=== PATIENT | male | born 1960 | race Caucasian/White ===

== ENCOUNTER 2025-08-01 08:42 | Outpatient (CLI) | payer BC, MEDICARE ==
[2025-08-01 09:34] LABS: #Basophils 0.03 10x3/uL (0.0-0.2); #Eosinophils 0.41 10x3/uL (0.0-0.5); #Monocytes 0.96 10x3/uL (0.0-1.1); #Neutrophils 3.78 10x3/uL (1.5-8.4); %Basophils 0.4 % (0.0-2.0); %Eosinophils 5.9 % (0.0-6.0); %Lymphocytes 25.4 % (18.0-47.0); %Monocytes 13.8 % (0.0-10.0); %Neutrophils 54.2 % (40.0-75.0); Hematocrit 49.9 % (38.8-50.0); Hemoglobin 16.2 g/dL (13.5-17.5); Mean Corpuscular Hemoglobin 27.0 pg (27.0-33.0); Mean Corpuscular Volume 83.0 fL (81.2-95.1); Platelet Count 225 10x3/uL (150-450); Red Blood Cell (RBC) Count 6.01 10x6/uL (4.32-5.72); White Blood Cell (WBC) Count 6.97 10x3/uL (3.5-10.5)
[2025-08-01 09:53] LABS: Anion Gap 15 mmol/L (10-20); BUN (Urea Nitrogen) 13 mg/dL (8.4-25.7); Calc. Creatinine Clearance 0 mL/min (70-130); Calcium 9.3 mg/dL (7.8-10.44); Carbon Dioxide 22 mmol/L (23-31); Chloride 108 mmol/L (98-107); Glucose 96 mg/dL (80-115); Potassium 4.5 mmol/L (3.5-5.1); Sodium 140 mmol/L (136-145)
== END 2025-08-01 08:43 | disposition home or self-care (01) ==
LOC: CSHLAB 08:42
PROVIDERS: ATTEND Specialist
DX: Z01.818 Encounter for other preprocedural examination (principal); K40.90 Unilateral inguinal hernia, without obstruction or gangrene, not specified as recurrent; K42.9 Umbilical hernia without obstruction or gangrene; R94.31 Abnormal electrocardiogram [ECG] [EKG]
CPT/HCPCS: 71046; 80048; 85025; 93005; 93010

== ENCOUNTER 2025-08-08 08:40 | Day surgery (SDC) | payer BC, MEDICARE ==
[2025-08-01 08:59] VITALS: BMI 27.6
[2025-08-08] MEDS ORDERED: Ketorolac Tromethamine 30 MG (1 mL) VIAL ONE (09:46)
[2025-08-08] MEDS ORDERED: Acetaminophen 500 MG TAB ONE (09:47)
[2025-08-08] MEDS ORDERED: PROPOFOL 20 ML ONE (10:58)
[2025-08-08] MEDS ORDERED: Rocuronium Bromide 10 MG/ML (10ML VIAL) ONE (10:59)
[2025-08-08] MEDS ORDERED: Lidocaine 1% PF 5 ML VIAL ONE (10:59)
[2025-08-08] MEDS ORDERED: Bupivacaine/Epinephrine 0.25% 30 ML VIAL ONE (11:05)
[2025-08-08] MEDS ORDERED: CEFAZOLIN 2 GM VIAL ONE (11:24)
[2025-08-08] MEDS ORDERED: Glycopyrrolate 0.2 MG/ML 5 ML SYRINGE ONE (12:01)
[2025-08-08] MEDS ORDERED: Ondansetron PF 4 MG/2 ML Vial ONE (13:08)
[2025-08-08] MEDS ORDERED: SUGAMMADEX SODIUM 200 MG/2 ML VIAL ONE (13:11)
[2025-08-08] MEDS ORDERED: HYDROcodone/Acetaminophen 10/325 mg Tablet ONE (14:32)
[2025-08-08] MEDS ORDERED: HYDROcodone/Acetaminophen 5/325 mg Tablet ONE (14:33)
== END 2025-08-08 14:45 | disposition home or self-care (01) ==
LOC: CSHSDC 08:40
PROVIDERS: ATTEND Specialist
PROC: 0WQF0ZZ Repair Abdominal Wall, Open Approach (ICD-10-PCS; principal; 2025-08-08)
PROC: 0YQ54ZZ Repair Right Inguinal Region, Percutaneous Endoscopic Approach (ICD-10-PCS; principal; 2025-08-08)
DX: K40.90 Unilateral inguinal hernia, without obstruction or gangrene, not specified as recurrent (principal); K42.9 Umbilical hernia without obstruction or gangrene; D17.22 Benign lipomatous neoplasm of skin and subcutaneous tissue of left arm
CPT/HCPCS: A6258; C1781; J1100; J1885; J2250; J2704; S2900

== ENCOUNTER 2025-09-30 16:59 | Emergency (ER) | payer BC, MEDICARE ==
[2025-09-30 18:14] LABS: #Basophils 0.03 10x3/uL (0.0-0.2); #Eosinophils 0.23 10x3/uL (0.0-0.5); #Monocytes 1.01 10x3/uL (0.0-1.1); #Neutrophils 4.57 10x3/uL (1.5-8.4); %Basophils 0.4 % (0.0-2.0); %Eosinophils 3.1 % (0.0-6.0); %Lymphocytes 21.2 % (18.0-47.0); %Monocytes 13.6 % (0.0-10.0); %Neutrophils 61.6 % (40.0-75.0); Hematocrit 40.5 % (38.8-50.0); Hemoglobin 13.7 g/dL (13.5-17.5); Mean Corpuscular Hemoglobin 27.8 pg (27.0-33.0); Mean Corpuscular Volume 82.3 fL (81.2-95.1); Platelet Count 242 10x3/uL (150-450); Red Blood Cell (RBC) Count 4.92 10x6/uL (4.32-5.72); White Blood Cell (WBC) Count 7.42 10x3/uL (3.5-10.5)
[2025-09-30 18:28] LABS: INR-International Normal Ratio 1.0; PTT 24.9 sec (22.0-33.0); Prothrombin Time 10.5 sec (9.5-12.1)
[2025-09-30 18:31] LABS: ALT (SGPT) 10 U/L (Less than 45); AST (SGOT) 13 U/L (11-34); Albumin 3.4 g/dL (3.1-4.5); Alkaline Phosphatase 84 U/L (40-110); Anion Gap 12 mmol/L (10-20); BUN (Urea Nitrogen) 13 mg/dL (8.4-25.7); Bilirubin, Total 0.6 mg/dL (0.3-1.2); Calc. Creatinine Clearance 0 mL/min (70-130); Calcium 8.2 mg/dL (7.8-10.44); Carbon Dioxide 23 mmol/L (23-31); Chloride 109 mmol/L (98-107); Globulin 2.7 g/dL (2.4-3.5); Glucose 96 mg/dL (80-115); Potassium 3.9 mmol/L (3.5-5.1); Sodium 140 mmol/L (136-145)
[2025-09-30 18:35] LABS: Troponin I Less than 0.010 ng/mL (< 0.028)
[2025-09-30] MEDS ORDERED: Ibuprofen 200 MG TAB ONE (20:54)
[2025-09-30] MEDS ORDERED: Acetaminophen 325 MG TAB ONE (20:55)
== END 2025-09-30 21:51 | disposition home or self-care (01) ==
LOC: CSHERS 16:59
DX: R42 Dizziness and giddiness (principal); L03.114 Cellulitis of left upper limb; S43.401A Unspecified sprain of right shoulder joint, initial encounter; M70.32 Other bursitis of elbow, left elbow; W01.0XXA Fall on same level from slipping, tripping and stumbling without subsequent striking against object, initial encounter
CPT/HCPCS: 36416; 70450; 71045; 80053; 84484; 85025; 85610; 85730; 93005